=== PATIENT | male | born 1980 | race Caucasian/White ===

== ENCOUNTER 2020-09-04 17:24 | Emergency (ER) | payer OTHER ==
[~2020-09-04] VITALS: Ht 188 cm; Wt 108.9 kg
[~2020-09-04 17:24] MED LIST: ACETAMINOPHEN325 M1 PO; ADVAIR HFA 1112 UNIT INH; ALPRAZOLAM PO; ALPRAZOLAM2 MG PO; APAP500 PO; APAP650 PO; BACTRIM DS TAB1 EACH PO; BENADRYL25 MG PO; BENZONATATE100 MG PO; BISACODYL SUPP10 MG RECTAL; CIPROFLOXACIN250 M2 PO; CLONIDINE HCL0.2 M2 PO; COLACE100 MG PO; DILAUDID 4 MG TA4 M1 OR; DILAUDID 4 MG TA4 M1 PO; DILAUDID4 MG PO; DILAUDID8 MG PO; DUONEB 2.5-0.5 M3 ML INH; ENOXAPARIN40 MG/0.1 SUBQ; FENTANYL PA25 MCG/HR TP; FLEXERIL; FLEXERIL PO; GABAPENTIN PO; IBUPROFEN 200200 M1 PO; IBUPROFEN 800800 MG PO; KEFLEX500 MG PO; LISINOPRIL10 MG PO; MEDROL DOSPAK21 TAB PO; MOM PO; MUCINEX600 MG OR; MUCINEX600 MG PO; NABUMETONE 500500 M1 PO; NEURONTIN 300300 M1 PO; NEURONTIN600 MG PO; NICOTINE TRANSD21 M1 TD; NICOTINE1 EAC1 TD; NOHOMEMEDICATIONS; NORCO 5-325 TA1 EACH PO; OXYCODONE HCL30 MG PO; OXYCODONE IR PO; OXYCONTIN CR 8080 M1 PO; OXYCONTIN15 MG PO; OXYCONTIN60 MG PO; OXYCONTIN80 M1 PO; OXYIR 5 MG CAPSU5 M1 OR; POLYOX WSR-3011 GM; PREDNISONE 20 M20 M1 PO; PREDNISONE 20 M20 MG PO; PREDNISONE50 MG PO; SENNA; TESSALON PERLE100 MG PO; VALIUM10 MG PO; VALIUM5 MG PO; XANAX XR1 MG PO; XANAX XR2 MG PO; ZOFRAN4 MG PO; ZYVOX600 MG PO
[2020-09-04 17:30] VITALS: BP 178/51
[2020-09-04] MEDS ORDERED: ALPRAZOLAM1 MG PO (18:02)
[2020-09-04] MEDS ORDERED: AMITRIPTYLINE H25 M2 PO (18:02)
[2020-09-04] MEDS ORDERED: XANAX1 MG PO (18:24)
[2020-09-04] MEDS ORDERED: DOXYCYCLINE 10100 MG PO (18:25)
== END 2020-09-04 18:34 | disposition home or self-care (01) ==
LOC: ER 17:24
DX: L02.512 Cutaneous abscess of left hand (principal); Z76.0 Encounter for issue of repeat prescription; G89.29 Other chronic pain; Z88.5 Allergy status to narcotic agent; Z88.6 Allergy status to analgesic agent; Z88.0 Allergy status to penicillin; Z90.89 Acquired absence of other organs